=== PATIENT | female | born 1935 | race Hispanic/Latino ===

== ENCOUNTER 2018-12-06 11:56 | Emergency (ER) | payer MEDICARE ==
--- NOTE | 2018-12-06 12:40 | RAD REPORT ---
EXAM DESCRIPTION: RAD - Chest Single View - 12/06/2018 12:31 pm CLINICAL HISTORY: dysphagia Chest pain. COMPARISON: Chest Single View dated 12/11/2015; CHEST SINGLE VIEW dated 01/13/2015; CHEST SINGLE VIEW dated 08/01/2013; CHEST SINGLE VIEW dated 08/19/2010 FINDINGS: Portable technique limits examination quality. Mild interstitial prominence is seen throughout the lungs. Reduced right lung volume is seen, chronic in appearance. The heart is mildly prominent in size. No displaced fractures. IMPRESSION: Mild interstitial pulmonary edema is possible.
[2018-12-06] MEDS ORDERED: NA CHLORIDE 0.9% 250 ML ONE (12:45)
[2018-12-06 13:02] LABS: Absolute Lymphocytes (CBC) 1.3 K/uL (0.7-4.9); Basophils % 0.3 % (0-1.3); Hematocrit 38.1 % (36.0-45.0); Lymphocytes % 20.2 % (15.3-44.8); RBC Red Blood Cell Count 4.15 M/uL (3.86-4.86)
[2018-12-06 13:10] LABS: Protime INR 1.08
[2018-12-06 13:13] LABS: Albumin 3.6 g/dL (3.4-5.0); Bilirubin Direct 0.1 mg/dL (0-0.2); Bilirubin Total 0.6 mg/dL (0.2-1.0); Magnesium 2.2 mg/dL (1.8-2.4); Potassium 3.3 mmol/L (3.5-5.1); Protein, Total 7.9 g/dL (6.4-8.2); Troponin (Emerg Dept Use Only) 0.02 ng/mL (0.0-0.045)
--- NOTE | 2018-12-06 13:43 | RAD REPORT ---
EXAM DESCRIPTION: CT - Head Brain Wo Cont - 12/06/2018 1:29 pm CLINICAL HISTORY: Headache COMPARISON: 2017 TECHNIQUE: Computed axial tomography of the head was obtained. IV contrast was not requested. All CT scans are performed using dose optimization technique as appropriate and may include automated exposure control or mA/KV adjustment according to patient size. FINDINGS: An intracranial bleed is not seen . 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 Marked cerebral atrophy. Low-density fluid along the left frontal convexity and anterior interhemisph marianela fissure is unchanged. Mild to moderate low-density areas within periventricular, deep and subcortical white matter likely i schemic changes secondary to small vessel disease. Fluid within the sinuses/ mastoids is not seen. IMPRESSION: No acute intracranial abnormality is seen.
--- NOTE | 2018-12-06 13:45 | RAD REPORT ---
EXAM DESCRIPTION: CT - Soft Tissue Neck W/Contr - 12/06/2018 1:30 pm CLINICAL HISTORY: Dysphagia COMPARISON: None. TECHNIQUE: Computed axial tomography of the neck was obtained. 50 cc Isovue 300 was administered in travenously. Coronal and sagittal reconstruction was performed. All CT scans are performed using dose optimization technique as appropriate and may include automated exposure control or mA/KV adjustment according to patient size. FINDINGS: The pharynx, tongue base, larynx and subglottic trachea appear unremarkable The parotid, submandibular and thyroid glands appear unremarkable. No lymphadenopathy is seen The sinuses and mastoids are clear. IMPRESSION: No acute abnormality displayed
[2018-12-06] MEDS ORDERED: ONDANSETRON 4 MG/2 ML VIAL ONE (14:13)
[2018-12-06] MEDS ORDERED: POTASSIUM 25 MEQ EFFERV TAB ONE (14:13)
[2018-12-06 14:33] LABS: Urine Blood TRACE (NEG); Urine Glucose NEGATIVE (NEG); Urine Protein NEGATIVE (NEG)
--- NOTE | 2018-12-06 14:54 | EDPHYS ---
Physician Documentation [facility] Name: Kristi Stewart Age: 82 yrs Sex: Female : 1935 Arrival Date: 12/06/2018 Time: 11:58 Bed 6 Private MD: ED Physician Zeke Fyr HPI: 12/06 12:20 This 82 yrs old Female presents to ER via Wheelchair with complaints of cp Difficulty Swallowing. 12:20 The patient presents with dysphagia, of both solids and liquids, pain with swallowing. cp Onset: The symptoms/episode began/occurred 2 day(s) ago. 12:20 Severity of symptoms: in the emergency department the symptoms are unchanged, despite cp home interventions. Modifying factors: Denies contact with similarly ill indivduals. Associated signs and symptoms: Pertinent negatives chest pain, earache, fever, headache. Historical: - Allergies: 12:00 NKA; aa5 - PMHx: 12:00 CVA; Hypothyroidism; Trouble hearing; aa5 - PSHx: 12:00 right hip; left leg; aa5 - Immunization history:: Adult Immunizations unknown. - Social history:: Smoking status: Patient/guardian denies using tobacco. - Ebola Screening: : No symptoms or risks identified at this time. ROS: 12:25 Constitutional: Negative for body aches, chills, fever, poor PO intake. cp 12:25 Eyes: Negative for injury, pain, redness, and discharge. cp 12:25 ENT: Positive for difficulty swallowing, sore throat, Negative for drainage from ear(s), ear pain, sinus congestion, sinus pain, difficulty handling secretions, hoarseness. 12:25 Neck: Negative for pain with movement, pain at rest, stiffness, swollen nodes. 12:25 Cardiovascular: Negative for chest pain, edema, palpitations. 12:25 Respiratory: Negative for cough, shortness of breath, wheezing. 12:25 Abdomen/GI: Positive for nausea, vomiting, dysphagia, Negative for abdominal pain, constipation, anorexia, black/tarry stool, rectal bleeding. 12:25 Back: Negative for pain at rest, pain with movement, radiated pain. 12:25 : Negative for urinary symptoms. 12:25 Skin: Negative for cellulitis, rash. 12:25 Neuro: Negative for altered mental status, headache, weakness. 12:25 All other systems are negative. Exam: 12:32 Constitutional: The patient appears in no acute distress, alert, awake, cp non-diaphoretic, non-toxic, well developed, well nourished. 12:32 Head/Face: Normocephalic, atraumatic. cp 12:32 Eyes: Periorbital structures: appear normal, Pupils: equal, round, and reactive to light and accomodation, Extraocular movements: intact throughout, Conjunctiva: normal, no exudate, no injection, Sclera: no appreciated abnormality, Lids and lashes: appear normal, bilaterally. 12:32 ENT: External ear(s): are unremarkable, Ear canal(s): are normal, clear, TM's: bulging, is not appreciated, bilaterally, dullness, bilaterally, erythema, is not appreciated, bilaterally, Nose: is normal, Mouth: Lips: moist, Oral mucosa: pink and intact, moist, Tongue: is normal, drooling, is not appreciated, Posterior pharynx: Airway: no evidence of obstruction, patent, Tonsils: are normal in appearance, Uvula: midline, swelling, is not appreciated, erythema, is not appreciated, exudate, is not appreciated, peritonsillar mass, is not appreciated, pooling of secretions, is not appreciated. 12:32 Neck: ROM/movement: is normal, is supple, without pain, no range of motions limitations, no meningismus, no nuchal rigidity, Lymph nodes: no appreciated lymphadenopathy. 12:32 Chest/axilla: Inspection: normal, Palpation: is normal, no crepitus, no tenderness. 12:32 Cardiovascular: Rate: tachycardic, Rhythm: regular, Edema: is not appreciated, JVD: is not appreciated. 12:32 Respiratory: the patient does not display signs of respiratory distress, Respirations: normal, no use of accessory muscles, no retractions, no splinting, no tachypnea, labored breathing, is not present, Breath sounds: are clear throughout, no decreased breath sounds, no stridor, no wheezing. 12:32 Abdomen/GI: Inspection: abdomen appears normal, Bowel sounds: active, all quadrants, Palpation: soft, in all quadrants, mild abdominal tenderness, in the right upper quadrant, rebound tenderness, is not appreciated, voluntary guarding, is not appreciated, involuntary guarding, is not appreciated. 12:32 Back: pain, is absent, ROM is normal. 12:32 Neuro: Orientation: to person, place \T\ time. Mentation: is normal, Cerebellar function: is grossly normal, Motor: moves all fours, strength is normal, Sensation: is normal. 12:35 ECG was reviewed by the Attending Physician. cp Vital Signs: 12:00 BP 144 / 103; Pulse 110; Resp 18 S; Temp 98.0(O); Pulse Ox 97% on R/A; Pain 0/10; aa5 13:00 BP 136 / 88; Pulse 96; Resp 16 S; Pulse Ox 100% on R/A; Pain 0/10; aa5 14:30 BP 139 / 87; Pulse 88; Resp 16 S; Temp 98.0(TE); Pulse Ox 98% on R/A; Pain 0/10; aa5 MDM: 12:09 Patient medically screened. cp 14:50 Counseling: I had a detailed discussion with the patient and/or guardian regarding: the cp historical points, exam findings, and any diagnostic results supporting the discharge/admit diagnosis, lab results, radiology results, the need for outpatient follow up, a processing archivist, to return to the emergency department if symptoms worsen or persist or if there are any questions or concerns that arise at home. 14:51 Data reviewed: vital signs, nurses notes, lab test result(s), EKG, radiologic studies, cp CT scan, plain films. 14:51 Test interpretation: by ED physician or midlevel provider: ECG, plain radiologic cp studies. 12/06 12:14 Order name: Basic Metabolic Panel; Complete Time: 13:34 12/06 13:34 Interpretation: Normal except: K 3.3; CL 108; BUN 19; GFR 64. 12/06 12:14 Order name: CBC with Diff; Complete Time: 13:34 12/06 12:14 Order name: LFT's; Complete Time: 13:34 12/06 14:17 Interpretation: Normal except: GLOB 4.3; A/G 0.8. 12/06 12:14 Order name: Magnesium; Complete Time: 13:34 12/06 12:14 Order name: NT PRO-BNP; Complete Time: 13:34 cp 12/06 12:14 Order name: PT-INR; Complete Time: 13:34 cp 12/06 12:14 Order name: Troponin (emerg Dept Use Only); Complete Time: 13:34 cp 12/06 12:14 Order name: XRAY Chest (1 view); Complete Time: 13:34 cp 12/06 12:15 Order name: Urine Microscopic Only 12/06 12:22 Order name: CT Head Brain wo Cont; Complete Time: 14:06 12/06 14:18 Interpretation: Report reviewed. 12/06 12:48 Order name: Strep; Complete Time: 13:34 aa5 12/06 13:15 Order name: Throat Culture [facility] 12/06 13:58 Order name: Urine Dipstick--Ancillary (enter results) 12/06 15:23 Order name: Urine Culture [facility] 12/06 12:14 Order name: EKG; Complete Time: 12:16 12/06 12:14 Order name: Cardiac monitoring; Complete Time: 12:21 12/06 12:14 Order name: EKG - Nurse/Tech; Complete Time: 12:22 12/06 12:14 Order name: IV Saline Lock; Complete Time: 12:47 12/06 12:14 Order name: Labs collected and sent; Complete Time: 12:47 12/06 12:14 Order name: O2 Per Protocol; Complete Time: 12:21 12/06 12:14 Order name: O2 Sat Monitoring; Complete Time: 12:21 12/06 12:14 Order name: Swallow Screen; Complete Time: 12:47 12/06 12:15 Order name: Urine Dipstick-Ancillary (obtain specimen); Complete Time: 13:52 12/06 12:22 Order name: CT Soft Tissue Neck W/contr; Complete Time: 14:06 12/06 13:23 Order name: Straight Cath - Urine; Complete Time: 13:52 aa5 EC:35 Rate is 102 beats/min. Rhythm is regular. IA interval is normal. QRS interval is cp prolonged at 120 msec. QT interval is normal. Interpreted by me. Reviewed by me. Administered Medications: 12:48 Drug: NS 0.9% 250 ml Route: IV; Rate: bolus; Site: right forearm; aa5 13:20 Follow up: IV Status: Completed infusion; IV Intake: 250ml aa5 14:15 Drug: Zofran 4 mg Route: IVP; Site: right forearm; aa5 14:30 Follow up: Response: No adverse reaction aa5 14:16 Drug: Potassium Effervescent Tablet 25 mEq Route: PO; aa5 14:30 Follow up: Response: No adverse reaction aa5 Disposition: 12/06/18 14:52 Discharged to Home. Impression: Dysphagia. - Condition is Stable. - Discharge Instructions: Dysphagia, Thickening Liquids for Dysphagia Diet, Dysphagia Diet Level 1, Pureed. - Prescriptions for Zofran ODT 4 mg Oral tablet,disintegrating - take 1 tablet by ORAL route every 6-8 hours As needed; 20 tablet. - Medication Reconciliation Form, Thank You Letter, Antibiotic Education, Prescription Opioid Use form. - Follow up: Cliff Trivedi MD; When: 1 - 2 days; Reason: Recheck today's complaints. - Problem is new. - Symptoms are unchanged. Addendum: 12/08/2018 06:59 Co-signature as Attending Physician, Zeke Fry MD. r n Signatures: Dispatcher [employer] EDCapri Crisostomo RN RN iw Zeke Fry MD MD rn Calderon, Audri, RN RN aa5 Mundo Sanders PA PA cp Corrections: (The following items were deleted from the chart) 12/06 15:37 14:52 12/06/2018 14:52 Discharged to Home. Impression: Dysphagia. Condition is Stable. iw Forms are Medication Reconciliation Form, Thank You Letter, Antibiotic Education, Prescription Opioid Use. Follow up: Cliff Trivedi; When: 1 - 2 days; Reason: Recheck today's complaints. Problem is new. Symptoms are unchanged. cp
--- NOTE | 2018-12-06 14:54 | ER ---
Nurse's Notes [facility] Name: Kristi Stewart Age: 82 yrs Sex: Female : 1935 Arrival Date: 12/06/2018 Time: 11:58 Bed 6 Private MD: Diagnosis: Dysphagia Presentation: 12/06 12:00 Presenting complaint: states: "she's had trouble swallowing for years but over aa5 the last 2 days it has been getting worse and she hasn't been able to eat for the last 2 days". Pt c/o pain to throat with swallowing, reports generalized weakness and reports 2 episodes of diarrhea today. 12:00 Transition of care: patient was not received from another setting of care. Onset of aa5 symptoms was December 06, 2018. Risk Assessment: Do you want to hurt yourself or someone else? Patient reports no desire to harm self or others. Initial Sepsis Screen: Does the patient meet any 2 criteria? HR > 90 bpm. Does the patient have a suspected source of infection? No. Patient's initial sepsis screen is negative. Care prior to arrival: None. 12:00 Acuity: MARY 3 aa5 12:00 Method Of Arrival: Wheelchair aa5 Historical: - Allergies: 12:00 NKA; aa5 - PMHx: 12:00 CVA; Hypothyroidism; Trouble hearing; aa5 - PSHx: 12:00 right hip; left leg; aa5 - Immunization history:: Adult Immunizations unknown. - Social history:: Smoking status: Patient/guardian denies using tobacco. - Ebola Screening: : No symptoms or risks identified at this time. Screenin:47 Patient has been NPO before screening. The patient is alert, able to follow commands. aa5 The patient does not exhibit slurred or garbled speech The patient is not exhibiting difficulty speaking. The patient is exhibiting difficulty understanding words. The patient is able to swallow own secretions with no drooling or need for suction. Patient tolerated one teaspoon of water. No drooling, immediate coughing, gurgling, or clearing of the throat was noted. The patient tolerated 90mL of water. No drooling, immediate coughing, gurgling, or clearing of the throat was noted. Pt only c/o of throat pain during swallowing The patient passed the bedside swallow screening. Oral medications may be given as ordered. Contact Physician for further diet orders. Provider notified of bedside swallow screening results: Mundo SALAZAR. 13:00 Abuse screen: Denies threats or abuse. Nutritional screening: No deficits noted. aa5 Tuberculosis screening: No symptoms or risk factors identified. Fall Risk Fall in past 12 months (25 points). IV access (20 points). Total Vázquez Fall Scale indicates High Risk Score (45 or more points). Fall prevention measures have been instituted. Side Rails Up X 2 Placed Close to Nursing Station. Assessment: 12:00 General: Appears comfortable, Behavior is calm, cooperative. Pain: Complains of pain in aa5 throat only with swallowing. Neuro: Level of Consciousness is awake, alert, obeys commands, Oriented to person, place, time, situation, Early Childhood Coordinator are equal bilaterally Moves all extremities. Speech is normal, Facial symmetry appears normal, Pupils are PERRLA. Cardiovascular: Heart tones S1 S2 present Rhythm is regular. Respiratory: Airway is patent Respiratory effort is even, unlabored, Respiratory pattern is regular, symmetrical, Breath sounds are clear bilaterally. GI: Abdomen is round Bowel sounds present X 4 quads. Abd is soft and non tender X 4 quads. Reports diarrhea, nausea, vomiting. : Brief noted. EENT: Throat is pink with gag reflex present, Reports pain when swallowing. Derm: Skin is pink, warm \\T\\ dry. Musculoskeletal: Range of motion: intact in all extremities. 13:00 Reassessment: Patient is alert, oriented x 3, equal unlabored respirations, skin aa5 warm/dry/pink. Pt's remains at bedside . 14:00 Reassessment: Patient is alert, oriented x 3, equal unlabored respirations, skin aa5 warm/dry/pink. Patient denies pain at this time. Pt sitting up in bed watching TV. . 15:30 Reassessment: Patient is alert, oriented x 3, equal unlabored respirations, skin aa5 warm/dry/pink. Vital Signs: 12:00 BP 144 / 103; Pulse 110; Resp 18 S; Temp 98.0(O); Pulse Ox 97% on R/A; Pain 0/10; aa5 13:00 BP 136 / 88; Pulse 96; Resp 16 S; Pulse Ox 100% on R/A; Pain 0/10; aa5 14:30 BP 139 / 87; Pulse 88; Resp 16 S; Temp 98.0(TE); Pulse Ox 98% on R/A; Pain 0/10; aa5 ED Course: 11:58 Patient arrived in ED. as 12:00 Arm band placed on Patient placed in an exam room, on a stretcher. aa5 12:00 Patient has correct armband on for positive identification. Bed in low position. Call aa5 light in reach. Side rails up X2. Adult w/ patient. 12:08 Theodora Banuelos, RN is Primary Nurse. aa5 12:09 Mundo aSnders PA is PHCP. cp 12:09 Zeke Fry MD is Attending Physician. cp 12:11 Triage completed. aa5 12:34 XRAY Chest (1 view) In Process Unspecified. EDMS 12:43 Initial lab(s) drawn, by me, sent to lab. Inserted saline lock: 22 gauge in right aa5 forearm, using aseptic technique. Blood collected. 12:44 EKG done, by construction technology instructor. reviewed by Zeke Fry MD. tc 13:35 CT Head Brain wo Cont In Process Unspecified. EDMS 13:35 CT Soft Tissue Neck W/contr In Process Unspecified. EDMS 13:52 Straight cath inserted, using sterile technique, 16 Fr. Specimen obtained. Patient aa5 tolerated well. 14:52 Cliff Trivedi MD is Referral Physician. cp 15:30 No provider procedures requiring assistance completed. IV discontinued, intact, aa5 bleeding controlled, No redness/swelling at site. Pressure dressing applied. Administered Medications: 12:48 Drug: NS 0.9% 250 ml Route: IV; Rate: bolus; Site: right forearm; aa5 13:20 Follow up: IV Status: Completed infusion; IV Intake: 250ml aa5 14:15 Drug: Zofran 4 mg Route: IVP; Site: right forearm; aa5 14:30 Follow up: Response: No adverse reaction aa5 14:16 Drug: Potassium Effervescent Tablet 25 mEq Route: PO; aa5 14:30 Follow up: Response: No adverse reaction aa5 Intake: 13:20 IV: 250ml; Total: 250ml. aa5 Outcome: 14:52 Discharge ordered by . cp 15:30 Discharged to home via wheelchair, with significant other. aa5 15:30 Condition: stable 15:30 Discharge instructions given to patient, significant other, Instructed on discharge instructions, follow up and referral plans. medication usage, Demonstrated understanding of instructions, follow-up care, medications, Prescriptions given X 1. 15:37 Patient left the ED. iw Addendum: 12/10/2018 17:08 Addendum: Culture Results: Positive urine culture. Patient was not prescribed s s antibiotics at discharge. Report given to ANABELA for further evaluation and then to supply chain analyst for follow up with patient. Phone call Attempt #1 not a working number. Signatures: Dispatcher [employer] Sarah Rucker Irene, BHARAT RN Theodora Hackett RN RN aa5 Monica Jean RN RN Kelley Herbert, business system consultant EKG [facility] Mundo Sanders PA PA cp
[2018-12-06 15:15] LABS: Urine Bacteria 20-50 /HPF (<20); Urine Culture Reflex Order REFLEXED; Urine RBC <5 /HPF (NONE SEEN)
[2018-12-06 15:59] VITALS: BP 144/103; TEMP 98; O2SAT 97
--- NOTE | 2018-12-06 16:56 | EKG ---
Test Date: 2018-12-06 Test Time: 12:24:26 Embroidery Supervisor: LUIS M MEASUREMENT RESULTS: Intervals: Rate: 102 UT: 142 QRSD: 120 QT: 384 QTc: 500 [place]: P: 39 UT: 142 QRS: 268 T: 16 INTERPRETIVE STATEMENTS: Sinus tachycardia Low voltage QRS Right bundle branch block Abnormal ECG Compared to ECG 12/11/2015 15:53:12 Low QRS voltage now present Left-axis deviation no longer present Electronically Signed On 12-06-18 16:54:36 CDT by Afshin Ospina
== END 2018-12-06 15:37 | disposition home or self-care (01) ==
LOC: ER 11:56
DX: R13.10 Dysphagia, unspecified (principal); Z86.73 Personal history of transient ischemic attack (TIA), and cerebral infarction without residual deficits
CPT/HCPCS: 96361; 93005; 87070; 87088; 85025; 87086; 80048; 36415; 83735; 85610; 80076; 87081; 87077; 87186; 84484; 83880; 70450; 70491; 71045; 51702; 96374; 99284; Q9967; J2405; 81003; 81015